=== PATIENT | female | born 1935 | race Caucasian/White ===

== ENCOUNTER 2018-02-18 06:36 | Day surgery (SDC) | payer OTHER ==
[~2018-02-18 06:36] MED LIST: IMODIUM PO; INTESTINEX680 MG PO; Intestinex CAP PO; OXYC1TAB9 PO; PANTOPRAZOLE SO40 MG PO; PROTONIX40 MG PO; QUESTRAN PACKET4 GM PO
== END 2018-02-18 11:20 | disposition home or self-care (01) ==
LOC: AMB-ENDOS 06:36
DX: C20 Malignant neoplasm of rectum (principal)

== ENCOUNTER 2020-07-29 13:00 | Emergency (ER) | payer OTHER ==
[~2020-07-29] VITALS: Ht 162.6 cm; Wt 61.2 kg
== END 2020-07-29 19:10 | disposition home or self-care (01) ==
LOC: ER 13:00
DX: S01.01XA Laceration without foreign body of scalp, initial encounter (principal); M54.2 Cervicalgia; R10.2 Pelvic and perineal pain; R07.89 Other chest pain; W01.118A Fall on same level from slipping, tripping and stumbling with subsequent striking against other sharp object, initial encounter; Y93.01 Activity, walking, marching and hiking; Y92.480 Sidewalk as the place of occurrence of the external cause; Y99.8 Other external cause status

== ENCOUNTER 2020-10-04 06:00 | Day surgery (SDC) | payer OTHER | END 2020-10-04 09:45 | disposition home or self-care (01) | LOC: AMB-ENDOS 06:00 | PROVIDERS: ATTEND Surgery | DX: D12.0 Benign neoplasm of cecum (principal); D12.2 Benign neoplasm of ascending colon; Z20.822 Contact with and (suspected) exposure to COVID-19 ==